=== PATIENT | female | born 1985 | race Two or more races ===

== ENCOUNTER 2017-10-19 22:46 | Emergency (ER) | payer MEDICAID ==
[~2017-10-19] VITALS: Ht 157.5 cm; Wt 72.6 kg
[2017-10-19 22:56] VITALS: BP 144/99
== END 2017-10-20 00:03 | disposition left against medical advice (07) ==
LOC: ER 22:46
DX: R07.9 Chest pain, unspecified (principal); Z53.21 Procedure and treatment not carried out due to patient leaving prior to being seen by health care provider
CPT/HCPCS: 93005